=== PATIENT | female | born 1935 | race Caucasian/White ===

== ENCOUNTER 2018-07-04 10:45 | Day surgery (SDC) | payer MEDICARE, OTHER ==
[~2018-07-04] VITALS: Ht 154.9 cm; Wt 51.3 kg
[~2018-07-04 10:45] MED LIST: AMLODIPINE BESYL5 MG PO; PROAIR RESPICL90 MCG
[2018-07-04] MEDS ORDERED: HYDROCODON-ACE1 EA10 PO (13:22)
--- NOTE | 2018-07-04 13:33 | NUR ---
07/04/18 1332 Shabana,Jolene 1326 PT ARRIVED TO PACU ON WOKE TO VERBAL STIMULI AND RESP EVEN AND UNLABORED. PT RESTING IN BED AND IS REORIETED TO PACU. PT DENIES PAIN IN HAND. 1330 PT BACK TO SLEEP. ICE APPLIED TO LEFT WRIST.
--- NOTE | 2018-07-07 07:08 | OR ---
[facility] [address], [place] [address] Signed DATE OF OPERATION: 07/04/2018 SURGEON: Cody Maxwell MD PREOPERATIVE DIAGNOSIS: Left carpal tunnel syndrome. POSTOPERATIVE DIAGNOSIS: Left carpal tunnel syndrome. PROCEDURE PERFORMED: Left carpal tunnel release. ANESTHESIA: Lalit block. TOURNIQUET TIME: 20 minutes. IMPLANTS: None. BRIEF HISTORY: Demetria is an 83-year-old female with progressive worsening of numbness and pain in her wrist. Risks and benefits of operative treatment discussed with her and she elected to proceed. DESCRIPTION OF PROCEDURE: Once consent was obtained, she was taken to the operating room. After adequate anesthesia, she was placed on operating room table. All downside pressure points well padded. The left arm was prepped and draped in a standard sterile fashion after establishment of [place] block. The Lalit block was tested and was found to be adequate. A 1.5 cm incision was made in the distal wrist crease, carried through skin and subcutaneous tissue. Palmaris longus was retracted and protected. Under loupe magnification, the transverse carpal ligament was identified and dissected free of overlying soft tissue. It was released proximally a centimeter and distally to the distal extent, again under direct visualization. The median nerve was visualized, found to be intact. The wound was copiously irrigated with antibiotic solution, closed with 3-0 nylon, and dressed with bacitracin, Adaptic, 4 x 4 gauze. We did inject the subcutaneous tissue around the wound with 5 mL of 0.25% plain Marcaine. She was taken Electronically Signed By: CODY MAXWELL MD 07/07/18 0708 PATIENT NAME: Kati WEBBER OPERATIVE REPORT DATE OF : 39 REPORT #: [id number] PHYSICIAN: CODY MAXWELL MD PCP: CODY MAXWELL MD REPORT IS CONFIDENTIAL AND NOT TO BE RELEASED WITHOUT AUTHORIZATION [address], [place] [address] Signed to the recovery room in satisfactory condition. Cody Maxwell MD BA/LEXIEL /[id number] Copies: ~ Electronically Signed By: CODY MAXWELL MD 07/07/18 0708 PATIENT NAME: Kati WEBBER OPERATIVE REPORT DATE OF : 39 REPORT #: [id number] PHYSICIAN: CODY MAXWELL MD PCP: CODY MAXWELL MD REPORT IS CONFIDENTIAL AND NOT TO BE RELEASED WITHOUT AUTHORIZATION
== END 2018-07-04 14:10 | disposition home or self-care (01) ==
LOC: DS 10:45 → OPS 10:45 → DS 12:00 → OPS 14:10
PROVIDERS: Specialist
PROC: 01N50ZZ Release Median Nerve, Open Approach (ICD-10-PCS; principal; 2018-07-04 12:00)
DX: G56.03 Carpal tunnel syndrome, bilateral upper limbs (principal); I10 Essential (primary) hypertension; J45.909 Unspecified asthma, uncomplicated; Z79.899 Other long term (current) drug therapy; Z87.891 Personal history of nicotine dependence
CPT/HCPCS: 01810; J0690; J2704; J7120

== ENCOUNTER 2023-10-22 18:42 | Emergency (ER) | payer MEDICARE, OTHER ==
[~2023-10-22] VITALS: Ht 154.9 cm; Wt 42.0 kg
[~2023-10-22 18:42] MED LIST changes: +HYDROCODON-ACE1 EA10 PO; +SYMBICORT 16010.2 GM INH
--- OUTSIDE RECORDS SUMMARY | 2023-10-22 18:49 | XMS ---
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 [place] VISIT COUNT (12 MO.) [address] [place] [address] DESIREE Frias TOTAL 7 NOTE: Visits indicate total known visits. ED/UCC VISIT TRACKING (12 MO.) 10/22/2023 18:43 DESIREE Ayala OR TYPE: Emergency COMPLAINT: - POSS SEZIURES 10/22/2023 13:24 [facility] [employer] OR TYPE: Emergency DIAGNOSES: - Alzheimer's disease, unspecified - Dementia in other diseases classified elsewhere, severe, with agitation - AMS 10/21/2023 16:02 [employer] [employer] OR TYPE: Emergency DIAGNOSES: - Alzheimer's disease, unspecified - Dementia in other diseases classified elsewhere, severe, with agitation - Restlessness and agitation - Transient alteration of awareness - AMS 10/07/2023 14:24 [employer] OR TYPE: Emergency DIAGNOSES: - Pressure ulcer of sacral region, unspecified stage - WOUND CHECK 09/03[facility]2023 13:[facility] DIAGNOSES: - Pain in left hip - Unspecified dementia, severe, without behavioral disturbance, psychotic disturbance, mood disturbance, and anxiety - R HIP PAIN 09/02/2023 14:14 [facility] [place] TYPE: Emergency DIAGNOSES: - Urinary tract infection, site not specified - WEAKNESS 08/25/2023 12:18 [employer] [facility] [place] OR TYPE: Emergency DIAGNOSES: - Altered mental status, unspecified - Constipation, unspecified - WEAKNESS AMS INPATIENT VISIT TRACKING (12 MO.) 10/07/2023 14:24 [facility] OR TYPE: Medical Surgical DIAGNOSES: - Chronic idiopathic constipation - Other specified noninfective gastroenteritis and colitis - Pressure ulcer of sacral region, unspecified stage [email or web address]
[2023-10-22 19:29] LABS: BASOPHILS 1.1 % (0-2); EOSINOPHILS 1.1 % (0-6); HEMATOCRIT 32.3 % (35.0-50.0); LYMPHOCYTES 11.6 % (24-44); MCH 29.4 (27-36); MCHC 33.9 g/dl (30-36); MCV 86.7 fl (81-99); NEUTROPHILS 77.2 % (39-80); PLATELET COUNT 342 K/uL (140-440); RBC 3.73 M/ul (4.3-5.7); RDW 15.5 (10.5-15.0)
[2023-10-22 19:40] LABS: BILIRUBIN, URINE NEGATIVE (negative); BLOOD/HGB, URINE NEGATIVE (Negative); KETONE, URINE SMALL (Negative); LEUK ESTERASE, URINE NEGATIVE (negative); NITRITE, URINE NEGATIVE (negative); PH, URINE 5.5 (5-7)
[2023-10-22 19:46] LABS: ALBUMIN 3.4 g/dL (3.4-5.0); ALBUMIN/GLOBULIN RATIO 0.89 (1.1-2.4); ALCOHOL, MEDICAL <3 ng/dL (<3); ALKALINE PHOSPHATASE 96 U/L (46-116); ALT (SGPT) 28 U/L (14-59); ANION GAP 17.5 (7-21); AST (SGOT) 21 U/L (15-37); BILIRUBIN, TOTAL 0.7 ng/dL (0.2-1.0); BUN/CREATININE RATIO 16.36 (6.0-28.6); CALCIUM 9.5 mg/dL (8.5-10.1); CARBON DIOXIDE 22 mmol/L (21-32); CHLORIDE 101 mmol/L (98-107); GLOMERULAR FILTRATION RATE,EST 49 mL/min (>60); POTASSIUM 3.5 mmol/L (3.5-5.1); PROTEIN, TOTAL 7.2 g/dL (6.4-8.2); TSH, 3RD GENERATION 2.215 uIU/mL (0.358-3.740); UREA NITROGEN 18 mg/dL (7-18)
[2023-10-22 19:57] LABS: AMPHETAMINES, URINE NEGATIVE (NEGATIVE); BARBITURATES, URINE NEGATIVE (NEGATIVE); BENZODIAZEPINE, URINE NEGATIVE (NEGATIVE); BUPRENORPHINE, URINE NEGATIVE (NEGATIVE); CANNABINOID, URINE NEGATIVE (NEGATIVE); COCAINE, URINE NEGATIVE (NEGATIVE); ECSTASY, URINE NEGATIVE (NEGATIVE); FENTANYL, URINE NEGATIVE (NEGATIVE); METHADONE, URINE NEGATIVE (NEGATIVE); OPIATES, URINE NEGATIVE (NEGATIVE); OXYCODONE, URINE NEGATIVE (NEGATIVE); PHENCYCLIDINE, URINE NEGATIVE (NEGATIVE)
[2023-10-22 23:45] VITALS: BP 100/50
--- NOTE | 2023-10-23 13:53 | EKG ---
[facility] [address] [facility] [place], [place] [address] Signed Sinus rhythm with fusion complexes Left anterior fascicular block Cannot rule out Anterior infarct , age undetermined Abnormal ECG No previous ECGs available Confirmed by Juve Hutchinson MD ([id number]) on 10/23/2023 1:53:33 PM Electronically Signed By: JUVE HUTCHINSON 10/23/23 1353 PATIENT NAME: Kati WEBBER Electrocardiogram DATE OF : 39 PHYSICIAN: JUVE HUTCHINSON REPORT #: [id number] REPORT IS CONFIDENTIAL AND NOT TO BE RELEASED WITHOUT AUTHORIZATION
== END 2023-10-22 23:45 | disposition home or self-care (01) ==
LOC: ED 18:42
PROVIDERS: Family Medicine
DX: F03.911 Unspecified dementia, unspecified severity, with agitation (principal); J45.909 Unspecified asthma, uncomplicated; I10 Essential (primary) hypertension; Z87.891 Personal history of nicotine dependence; Z88.2 Allergy status to sulfonamides; Z88.5 Allergy status to narcotic agent; Z88.0 Allergy status to penicillin; Z79.51 Long term (current) use of inhaled steroids; Z79.899 Other long term (current) drug therapy; I44.4 Left anterior fascicular block
CPT/HCPCS: 36415; 70450; 71045; 80053; 80307; 81003; 82140; 84443; 85025; 93005; 93010; 99285-25; G0480